=== PATIENT | female | born 1975 | race Caucasian/White ===

== ENCOUNTER → 2017-01-25 | Outpatient (CLI) | payer OTHER ==
[2017-01-25 18:43] LABS: BASO # 0.1 10^3/uL (0.0-0.2); BASO % 1.3 % (0.0-1.0); EOS # 0.1 10^3/uL (0.0-0.50); EOS % 1.1 % (0.0-3.0); IMMATURE GRANULOCYTE % 0.2 % (0-0); LYMPH # 1.7 10^3/uL (1.5-4.5); LYMPH % 35.8 % (24.0-44.0); MEAN CORPUSCULAR HEMOGLOBIN 26.2 pg (27.0-33.0); MEAN CORPUSCULAR HGB CONC 30.6 g/dl (32.0-36.5); MEAN CORPUSCULAR VOLUME 85.6 fl (80.0-96.0); MONO # 0.3 10^3/uL (0.0-0.8); MONO % 5.6 % (0.0-5.0); NEUTROPHILS # 2.6 10^3/uL (1.8-7.7); PLATELET COUNT, AUTOMATED 293 10^3/uL (150-450); RED CELL DISTRIBUTION WIDTH 15.8 % (11.5-14.5); WHITE BLOOD COUNT 4.7 10^3/uL (4.0-10.0)
[2017-01-25 19:03] LABS: ALBUMIN 3.9 GM/DL (3.2-5.2); ALBUMIN/GLOBULIN RATIO 1.18 (1.00-1.93); ALKALINE PHOSPHATASE 44 U/L (45-117); ALT/SGPT 16 U/L (12-78); ANION GAP 6 MEQ/L (8-16); AST/SGOT 10 U/L (7-37); BILIRUBIN,TOTAL 0.2 MG/DL (0.2-1.0); BLOOD UREA NITROGEN 8 MG/DL (7-18); CALCIUM LEVEL 9.1 MG/DL (8.5-10.1); CARBON DIOXIDE LEVEL 28 MEQ/L (21-32); CHLORIDE LEVEL 108 MEQ/L (98-107); CREATININE FOR GFR 0.82 MG/DL (0.55-1.02); GLOMERULAR FILTRATION RATE > 60.0 (>60); GLUCOSE, FASTING 90 MG/DL (70-105); POTASSIUM SERUM 4.3 MEQ/L (3.5-5.1); SODIUM LEVEL 142 MEQ/L (136-145); TOTAL PROTEIN 7.2 GM/DL (6.4-8.2)
== END ==
LOC: M WUC 09:13
PROVIDERS: ATTEND Physician Assistant
DX: R10.11 Right upper quadrant pain (principal)

== ENCOUNTER → 2017-09-30 | Outpatient (CLI) | payer OTHER | LOC: M RAD 08:49 | DX: Z12.31 Encounter for screening mammogram for malignant neoplasm of breast (principal) | CPT/HCPCS: 77067 ==

== ENCOUNTER → 2017-10-13 | Outpatient (CLI) | payer OTHER | LOC: M RAD 10:00 | DX: E05.00 Thyrotoxicosis with diffuse goiter without thyrotoxic crisis or storm (principal) | CPT/HCPCS: 78012 ==

== ENCOUNTER → 2017-11-14 | Outpatient (CLI) | payer OTHER ==
[2017-11-14 13:02] LABS: FREE T4 1.57 NG/DL (0.76-1.46); THYROID STIMULATING HORMONE < 0.005 uIU/ML (0.358-3.740)
== END ==
LOC: M LAB 11:43
DX: E05.00 Thyrotoxicosis with diffuse goiter without thyrotoxic crisis or storm (principal)
CPT/HCPCS: 84443

== ENCOUNTER 2018-03-13 06:39 | Day surgery (SDC) | payer OTHER ==
[~2018-03-13] VITALS: Ht 162.6 cm; Wt 76.7 kg
[~2018-03-13 06:39] MED LIST: IBUP80TA PO; NS 1,000 ML IV ONE; ROBA500T PO
[2018-03-13] MEDS ORDERED: LIDOCAINE 2% INJ 100 MG/5 ML SDV (FOR ANES.) As Ordered ONE (07:04)
[2018-03-13] MEDS ORDERED: PROPOFOL 200 MG/20 ML VIAL As Ordered ONE ×2 (07:04→07:50)
--- NOTE | 2018-03-13 08:02 | ROOR ---
Patient Name: Juliette Mederos Procedure Date: 03/13/2018 7:35 AM Date of : 1975 Age: 42 Room: [facility] Gender: Female Note Status: Finalized Procedure: Total Colonoscopy to Cecum + Biopsy Polypectomy Indications: Screening in patient at increased risk: Colorectal cancer in mother before age 60 Providers: Nikolay Clemens MD Referring MD: LAI HOYT MD Requesting Provider: Medicines: Monitored Anesthesia Care Complications: No immediate complications. Procedure: Pre-Anesthesia Assessment: - The heart rate, respiratory rate, oxygen saturations, blood pressure, adequacy of pulmonary ventilation, and response to care were monitored throughout the procedure. The Colonoscope was introduced through the anus and advanced to the cecum, identified by appendiceal orifice and ileocecal valve. The colonoscopy was performed without difficulty. The patient tolerated the procedure well. The quality of the bowel preparation was excellent. Findings: The perianal and digital rectal examinations were normal. Non-bleeding internal hemorrhoids were found during retroflexion. The hemorrhoids were small and Grade I (internal hemorrhoids that do not prolapse). A diminutive polyp was found at 20 cm proximal to the anus. The polyp was sessile. The polyp was removed with a jumbo cold forceps. Resection and retrieval were complete. A small polyp was found at 60 cm proximal to the anus. The polyp was sessile. The polyp was removed with a jumbo cold forceps. Resection and retrieval were complete. The exam was otherwise without abnormality on direct and retroflexion views. Impression: - Non-bleeding internal hemorrhoids. - One diminutive polyp at 20 cm proximal to the anus, removed with a jumbo cold forceps. Resected and retrieved. - One small polyp at 60 cm proximal to the anus, removed with a jumbo cold forceps. Resected and retrieved. - The examination was otherwise normal on direct and retroflexion views. - The exam was otherwise normal to the cecum. Recommendation: - Patient has a contact number available for emergencies. The signs and symptoms of potential delayed complications were discussed with the patient. Return to normal activities tomorrow. Written discharge instructions were provided to the patient. - High fiber diet. - Discharge patient to home. - Continue present medications. - Await pathology results. - Telephone GI clinic for pathology results in 1 week. - Repeat colonoscopy in 5 years for surveillance based on pathology results. - Return to referring physician. - The findings and recommendations were discussed with the patient's family. Nikolay Clemens MD Nikolay Clemens MD 03/13/2018 8:02:11 AM This report has been signed electronically. Number of Addenda: 0 Note Initiated On: 03/13/2018 7:35 AM Estimated Blood Loss: Estimated blood loss: none.
[2018-03-13 08:25] VITALS: BP 135/72
== END 2018-03-13 08:57 | disposition home or self-care (01) ==
LOC: M OPP 06:39
PROVIDERS: ATTEND Internal Medicine Gastroenterology
DX: Z80.0 Family history of malignant neoplasm of digestive organs (principal); D12.6 Benign neoplasm of colon, unspecified; K64.0 First degree hemorrhoids; Z79.899 Other long term (current) drug therapy; Z87.891 Personal history of nicotine dependence

== ENCOUNTER → 2019-02-15 | Outpatient (CLI) | payer OTHER ==
[~2019-02-15] MED LIST changes: -NS 1,000 ML IV ONE
--- NOTE | 2019-02-15 11:00 | REPMRS ---
Patient History The patient states she has not had a clinical breast exam in over a year. Family history of colorectal cancer at age 50 or over in mother, breast cancer at age 50 or over in maternal aunt, breast cancer at age 50 or over in maternal aunt, breast cancer under age 50 in maternal cousin, breast cancer at age 50 or over in maternal cousin, prostate cancer at age 50 or over in father. Digital Mammo Screening Bilat: February 15, 2019 - Exam #: [id number] Bilateral CC and MLO view(s) were taken. Technologist: Lana Medeiros, Technologist Prior study comparison: September 30, 2017, bilateral digital mammo screening bilat performed at [facility]. FINDINGS: The breast tissue is heterogeneously dense. This may lower the sensitivity of mammography. There is a moderate amount of heterogeneously dense fibroglandular tissue which is fairly symmetric. There is no interval development of dominant mass, architectural distortion, or grouped microcalcification typical of malignancy. There has been no change in the appearance of the mammogram from the prior studies. Assessment: BI-RADS/ACR category 1 mammogram. Negative Mammogram. Recommendation Routine screening mammogram of both breasts in 1 year (for women over age 40). This patient's Lifetime Breast Cancer RIsk is estimated at 15.9 %. This mammogram was interpreted with the aid of an FDA-approved computer-aided dectection system. Electronically Signed By: Spencer Emerson MD 02/15/19 [id number]
== END ==
LOC: M RAD 10:06
PROVIDERS: ATTEND Nurse Practitioner Primary Care
DX: Z12.31 Encounter for screening mammogram for malignant neoplasm of breast (principal); Z80.0 Family history of malignant neoplasm of digestive organs

== ENCOUNTER → 2020-06-05 | Outpatient (CLI) | payer OTHER ==
--- NOTE | 2020-06-05 15:01 | REPMRS ---
Patient History The patient states she has not had a clinical breast exam in over a year. Family history of colorectal cancer at age 50 or over in mother, breast cancer at age 50 or over in maternal aunt, breast cancer at age 50 or over in maternal aunt, breast cancer under age 50 in maternal cousin, breast cancer at age 50 or over in maternal cousin, prostate cancer at age 50 or over in father. 3D TOMOSYNTHESIS WAS PERFORMED. The [facility] lifetime risk for breast cancer is 15.4%. Volpara breast density b. Digital Woman Screen Mammo: June 05, 2020 - Exam #: [id number] Bilateral CC and MLO view(s) were taken. Technologist: RT Shasta Prior study comparison: February 15, 2019, bilateral digital mammo screening bilat, performed at [facility]. September 30, 2017, bilateral digital mammo screening bilat, performed at [facility]. FINDINGS: There are scattered fibroglandular densities. There has been no change in the appearance of the mammogram from the prior studies. There is a mild amount of residual fibroglandular tissue which is fairly symmetric. There is no interval development of dominant mass, architectural distortion, or clustered microcalcification suggestive of malignancy. Assessment: BI-RADS/ACR category 1 mammogram. Negative Mammogram. Recommendation Routine screening mammogram in 1 year (for women over age 40). This mammogram was interpreted with the aid of an FDA-approved computer-aided dectection system. Electronically Signed By: Valerio Presley MD 06/05/20 1500
== END ==
LOC: M WHC 12:50
PROVIDERS: ATTEND Nurse Practitioner Primary Care
DX: Z12.31 Encounter for screening mammogram for malignant neoplasm of breast (principal)

== ENCOUNTER 2021-06-20 11:34 | Day surgery (SDC) | payer OTHER ==
[~2021-06-20] VITALS: Ht 162.6 cm; Wt 93.0 kg
[~2021-06-20 11:34] MED LIST changes: +NS 1,000 ML IV ONE
[2021-06-20] MEDS ORDERED: SYNT25TA PO (12:07)
[2021-06-20] MEDS ORDERED: LIDOCAINE 2% 100MG/5ML SDV (FOR ANES.) As Ordered ONE (13:04)
[2021-06-20] MEDS ORDERED: propofoL 200 MG/20 ML VIAL As Ordered ONE (13:04)
[2021-06-20 13:54] VITALS: BP 122/65
== END 2021-06-20 13:56 | disposition home or self-care (01) ==
LOC: M OPP 11:34
PROVIDERS: ATTEND Internal Medicine Gastroenterology
DX: Z12.11 Encounter for screening for malignant neoplasm of colon (principal); Z80.0 Family history of malignant neoplasm of digestive organs; D12.6 Benign neoplasm of colon, unspecified; K57.30 Diverticulosis of large intestine without perforation or abscess without bleeding; K64.0 First degree hemorrhoids; Z80.52 Family history of malignant neoplasm of bladder

== ENCOUNTER → 2021-07-03 | Outpatient (CLI) | payer OTHER ==
[~2021-07-03] MED LIST changes: -NS 1,000 ML IV ONE; +SYNT25TA PO
== END ==
LOC: M WHC 12:31
PROVIDERS: ATTEND Family Medicine
DX: Z12.31 Encounter for screening mammogram for malignant neoplasm of breast (principal); Z80.3 Family history of malignant neoplasm of breast

== ENCOUNTER → 2022-08-04 | Outpatient (CLI) | payer OTHER ==
[2022-08-04 09:38] LABS: BASO # 0.1 10^3/uL (0.0-0.2); EOS # 0.1 10^3/uL (0.0-0.5); HEMATOCRIT 42.7 % (36.0-47.0); LYMPH # 2.2 10^3/uL (1.5-5.0); LYMPH % 30.6 % (24.0-44.0); MEAN CORPUSCULAR HEMOGLOBIN 29.5 pg (27.0-33.0); MEAN CORPUSCULAR HGB CONC 32.8 g/dl (32.0-36.5); MEAN CORPUSCULAR VOLUME 89.9 fl (80.0-96.0); MONO # 0.3 10^3/uL (0.0-0.8); MONO % 4.7 % (2.0-8.0); NEUTROPHILS # 4.6 10^3/uL (1.5-8.5); NEUTROPHILS % 62.4 % (36.0-66.0); PLATELET COUNT, AUTOMATED 286 10^3/uL (150-450); RED BLOOD COUNT 4.75 10^6/uL (4.00-5.40); WHITE BLOOD COUNT 7.3 10^3/uL (4.0-10.0)
[2022-08-04 09:57] LABS: ALBUMIN 4.1 G/DL (3.2-5.2); ALKALINE PHOSPHATASE 51 U/L (46-116); ALT/SGPT 11 U/L (7.0-40); AST/SGOT < 8 U/L (<34); BILIRUBIN,TOTAL 0.4 MG/DL (0.3-1.2); BLOOD UREA NITROGEN 16 MG/DL (9-23); CALCIUM LEVEL 8.8 MG/DL (8.5-10.1); CARBON DIOXIDE LEVEL 29 MMOL/L (20-31); CHLORIDE LEVEL 105 MMOL/L (98-107); CHOLESTEROL LEVEL 263 MG/DL (<200); CHOLESTEROL RISK RATIO 6.95 (<5); CREATININE FOR GFR 0.75 MG/DL (0.55-1.30); GLOMERULAR FILTRATION RATE > 60.0 (>58); GLUCOSE, FASTING 87 MG/DL (60-100); HDL CHOLESTEROL 37.8 MG/DL (>40); LDL CHOLESTEROL 174.2 MG/DL (<100); NON-HDL-C 225.2 MG/DL; POTASSIUM SERUM 4.2 MMOL/L (3.5-5.1); SODIUM LEVEL 140 MMOL/L (136-145); TOTAL PROTEIN 7.1 G/DL (5.7-8.2); TRIGLYCERIDES LEVEL 255 MG/DL (<150)
[2022-08-04 09:58] LABS: FREE T4 1.19 NG/DL (0.89-1.76)
[2022-08-04 09:59] LABS: THYROID STIMULATING HORMONE 3.467 uIU/ML (0.55-4.78)
== END ==
LOC: M LAB 08:45
PROVIDERS: ATTEND Student in an Organized Health Care Education/Training Program
DX: E03.9 Hypothyroidism, unspecified (principal); I10 Essential (primary) hypertension

== ENCOUNTER → 2022-09-13 | Outpatient (REF) | payer OTHER | LOC: M SFHCWAGY 17:10 | PROVIDERS: ATTEND Nurse Practitioner Family | DX: Z12.4 Encounter for screening for malignant neoplasm of cervix (principal) | CPT/HCPCS: 87624; G0123 ==